=== PATIENT | female | born 1985 | race African-American/Black ===

== ENCOUNTER 2023-11-08 19:17 | Emergency (ER) | payer MEDICAID ==
[~2023-11-08] VITALS: Ht 152.4 cm; Wt 68.0 kg
[2023-11-08 21:08] LABS: Urine Epithelial Cast None Seen /hpf (<5)
[2023-11-08 21:16] LABS: Urine Bacteria NONE SEEN /hpf (None Seen); Urine Blood Negative /uL (Negative); Urine Clarity Clear (Clear); Urine Color Colorless (Yellow); Urine Protein, UAD Negative (Negative); Urine Urobilinogen Normal (Negative); Urine WBC 4 /hpf (0 - 5)
[2023-11-08 21:53] LABS: Basophils # (auto) 0.1 10 ^3/uL (0-0.2); Basophils % (auto) 0.9 % (0.0-2.0); Eosinophils # (auto) 0.1 10 ^3/uL (0-0.8); Eosinophils % (auto) 0.6 % (0.0-7.0); Hematocrit 42.4 % (36.0-46.0); Hemoglobin 13.7 g/dL (12.2-16.2); Lymphocytes % (auto) 20.9 % (10.0-50.0); Mean Corpuscular Hemoglobin 28.7 pg (28.0-32.0); Mean Corpuscular Hgb Conc. 32.4 g/dL (32.0-36.0); Mean Corpuscular Volume 88.7 fL (80.0-100.0); Monocytes # (auto) 0.5 10 ^3/uL (0-1.3); Monocytes % (auto) 5.2 % (0.0-12.0); Neutrophils # (auto) 6.8 10 ^3/uL (1.6-8.6); Neutrophils % (auto) 72.4 % (37.0-80.0); Nucleated Red Blood Cells % 0.1 %; Red Blood Cells 4.78 10^6/uL (4.0-5.20); Red Cell Distribution Width 13.6 % (11.8-14.3); White Blood Cell 9.4 10^3/uL (4.4-10.8)
[2023-11-08 21:54] LABS: Chloride 108 mmol/L (98-107); Potassium 3.7 mmol/L (3.5-5.1); Sodium 139 mmol/L (136-145)
[2023-11-08 21:55] LABS: Anion Gap 7 (5-15); Calcium 9.9 mg/dL (8.5-10.1); Carbon Dioxide 24 mmol/L (20-30)
[2023-11-08 22:00] LABS: BUN/Creatinine Ratio 7.1 (10.0-20.0); Blood Urea Nitrogen 6 mg/dL (9-23); Glucose 96 mg/dL (74-106)
[2023-11-09 01:29] VITALS: BP 139/81; PULSE 82; RESP 16; TEMP 98; O2SAT 100
== END 2023-11-08 20:06 | disposition home or self-care (01) ==
LOC: ER 19:17
DX: R55 Syncope and collapse (principal)
CPT/HCPCS: 36415; 80048; 81001; 85025; 93005